=== PATIENT | female | born 1970 | race Hispanic/Latino ===

== ENCOUNTER 2019-08-27 11:42 | Emergency (ER) | payer SELFPAY ==
[2019-08-27] MEDS ORDERED: Morphine 4 MG/ML VIAL ONE (12:42)
[2019-08-27] MEDS ORDERED: Acetaminophen 500 MG TAB ONE (12:42)
[2019-08-27] MEDS ORDERED: Ondansetron PF 4 MG/2 ML Vial ONE (12:43)
[2019-08-27] MEDS ORDERED: Piperacillin/Tazobactam 4.5 GM VIAL ONE (12:43)
[2019-08-27 12:45] LABS: #Lymphocytes 0.5 thou/uL (1.20-3.40); #Monocytes 0.5 thou/uL (0.11-0.59); #Neutrophils 10.9 thou/uL (1.40-6.50); %Basophils 0.1 % (0.0-1.0); %Eosinophils 0.1 % (0.0-10.0); %Lymphocytes 4.2 % (21.0-51.0); %Neutrophils 91.6 % (42.0-75.0); Hemoglobin 13.9 g/dL (12.0-16.0); Mean Corpuscular HGB CONC 35.1 g/dL (32.0-36.0); Mean Corpuscular Hemoglobin 34.8 pg (27.0-31.0); Mean Corpuscular Volume 99.2 fL (78.0-98.0); Mean Platelet Volume 7.1 fL (7.4-10.4); Platelet Count 197 thou/uL (130-400); RBC Distribution Width 11.2 % (11.5-14.5); White Blood Cell (WBC) Count 11.9 thou/uL (4.8-10.8)
[2019-08-27 12:48] LABS: BHCG - Serum Negative (NEGATIVE); Pregs Control Background? CLEAR/WHITE (CLR/WHITE); Pregs Control Bar Appear? YES (CONTROL BAR)
[2019-08-27 13:09] LABS: ALT (SGPT) 9 U/L (8-55); AST (SGOT) 15 U/L (5-34); Albumin 4.4 g/dL (3.5-5.0); Alkaline Phosphatase 77 U/L (40-110); Anion Gap 13 mmol/L (10-20); BUN (Urea Nitrogen) 8 mg/dL (7.0-18.7); Bilirubin, Total 0.6 mg/dL (0.2-1.2); Calc. Creatinine Clearance 0 mL/min (70-130); Calcium 9.3 mg/dL (7.8-10.44); Carbon Dioxide 24 mmol/L (22-29); Chloride 103 mmol/L (98-107); Estimated GFR-MDRD 88; Globulin 2.8 g/dL (2.4-3.5); Glucose 104 mg/dL (70-105); Potassium 3.5 mmol/L (3.5-5.1); Protein, Total 7.2 g/dL (6.0-8.3); Sodium 136 mmol/L (136-145)
--- NOTE | 2019-08-27 13:22 | RAD ---
Portable frontal chest radiograph: 08/27/2019 COMPARISON: None HISTORY: Pain, fever, headache FINDINGS: Lungs are clear. Heart and mediastinal contours appear within normal limits. IMPRESSION: No acute findings.
[2019-08-27 13:32] LABS: Bilirubin Negative (Negative); Blood, Urine 1+ (Negative); Clarity Clear (Clear); Glucose, Urine (Dipstick) Normal (Negative); Leukocyte Negative Leu/uL (Negative); Nitrite Negative (Negative); Protein, Urine (Dipstick) Negative (Neg-Trace); Squamous Epithelial 0-3 HPF (0-3); Urobilinogen Normal mg/dL (Less than 2); WBC/HPF 0-3 HPF (0-3)
[2019-08-27 13:33] LABS: Bacteria/HPF 1+ HPF (None Seen)
--- NOTE | 2019-08-27 14:29 | CT ---
CT ABDOMEN AND PELVIS PERFORMED WITH CONTRAST ENHANCEMENT: Date: 08/27/2019 HISTORY: Abdominal pain in umbilical region. FINDINGS: The lung bases are clear of infiltrates. Tiny hypodensities in the liver are too small to characterize, but most likely small cysts. The splee n, pancreas, and gallbladder regions appear unremarkable. Right and left adrenal glands, and right and left kidneys are normal in size. There is no significant periaortic or mesenteric adenopathy. CT of pelvis performed with contrast enhancement. There are small follicles involving both adnexa. Th e appendix is normal in appearance. It lies anterior to the ascending colon. No evidence of any signi ficant free fluid in the pelvis. IMPRESSION: 1. No acute findings of the abdomen or pelvis. 2. Incidental note is made of bilateral pars defects and a spondylolisthesis of L5 on S1. POS: [facility]
[2019-08-27] MEDS ORDERED: Iopamidol-370 76% 500 ML 1 ML ONE (14:43)
[2019-08-27] MEDS ORDERED: cefTRIAXone\\ROCEPHIN 1 GM VIAL ONE (16:34)
[2019-08-27] MEDS ORDERED: Ketorolac Tromethamine 30 MG/ML VIAL ONE (16:34)
[2019-08-27] MEDS ORDERED: Azithromycin 250 MG TAB ONE (16:34)
[2019-08-28 23:07] LABS: Chlamydia by PCR Not Detected (NotDetected); GC by PCR Not Detected (NotDetected)
== END 2019-08-27 17:00 | disposition home or self-care (01) ==
LOC: ERS 11:42
DX: B34.9 Viral infection, unspecified (principal); R10.31 Right lower quadrant pain; R10.32 Left lower quadrant pain; N89.8 Other specified noninflammatory disorders of vagina; R11.0 Nausea
CPT/HCPCS: 36415; 71045; 74177; 80053; 81003; 81015; 83605; 84145; 84703; 85025; 87040; 87086; 87480; 87491; 87510; 87591; 87660; 87804; 96361; 96365; 96375; J0696; J1885; J2270; J2405; J2543; Q9967

== ENCOUNTER 2020-03-13 15:43 | Emergency (ER) | payer SELFPAY ==
[2020-03-13] MEDS ORDERED: Ketorolac Tromethamine 30 MG/ML VIAL ONE (16:37)
[2020-03-13] MEDS ORDERED: Dexamethasone 10 MG/ML VIAL ONE (16:38)
== END 2020-03-13 17:55 | disposition home or self-care (01) ==
LOC: ERS 15:43
DX: G56.01 Carpal tunnel syndrome, right upper limb (principal)
CPT/HCPCS: 96372; 99283; J1100; J1885

== ENCOUNTER 2022-05-08 16:50 | Emergency (ER) | payer SELFPAY ==
[2022-05-08 19:13] LABS: #Eosinphils 0.2 thou/uL (0.0-0.7); #Lymphocytes 2.2 thou/uL (1.20-3.40); #Monocytes 0.3 thou/uL (0.11-0.59); #Neutrophils 2.8 thou/uL (1.40-6.50); %Basophils 0.8 % (0.0-1.0); %Lymphocytes 40.6 % (21.0-51.0); %Monocytes 5.8 % (0.0-10.0); %Neutrophils 49.9 % (42.0-75.0); Hemoglobin 14.2 g/dL (12.0-16.0); Mean Corpuscular HGB CONC 33.4 g/dL (32.0-36.0); Mean Corpuscular Hemoglobin 33.6 pg (27.0-31.0); Platelet Count 259 thou/uL (130-400); RBC Distribution Width 10.7 % (11.5-14.5); Red Blood Cell (RBC) Count 4.24 mill/uL (4.20-5.40); White Blood Cell (WBC) Count 5.5 thou/uL (4.8-10.8)
[2022-05-08] MEDS ORDERED: Ketorolac Tromethamine 30 MG/ML VIAL ONE (19:15)
[2022-05-08 19:18] LABS: BHCG - Serum Negative (NEGATIVE); Pregs Control Background? CLEAR/WHITE (CLR/WHITE); Pregs Control Bar Appear? YES (CONTROL BAR)
[2022-05-08 19:28] LABS: ALT (SGPT) 12 U/L (8-55); AST (SGOT) 17 U/L (5-34); Albumin 4.5 g/dL (3.5-5.0); Alkaline Phosphatase 104 U/L (40-110); Anion Gap 12 mmol/L (10-20); BUN (Urea Nitrogen) 10 mg/dL (7.0-18.7); Bilirubin, Total 0.3 mg/dL (0.2-1.2); Calc. Creatinine Clearance 0 mL/min (70-130); Calcium 9.7 mg/dL (7.8-10.44); Carbon Dioxide 27 mmol/L (22-29); Chloride 105 mmol/L (98-107); Estimated GFR 88; Globulin 3.2 g/dL (2.4-3.5); Glucose 99 mg/dL (70-105); Potassium 3.7 mmol/L (3.5-5.1); Protein, Total 7.7 g/dL (6.0-8.3); Sodium 140 mmol/L (136-145)
== END 2022-05-08 21:07 | disposition home or self-care (01) ==
LOC: ERS 16:50
DX: M54.41 Lumbago with sciatica, right side (principal)
CPT/HCPCS: 36415; 74176; 80053; 84703; 85025; 96374; J1885